=== PATIENT | female | born 1995 | race Caucasian/White ===

== ENCOUNTER 2024-04-28 15:21 | Outpatient (OUT) | payer OTHER, SELFPAY ==
--- NOTE | 2024-04-28 15:36 | XR_ITS ---
The [address] [address] Patient Name: MINISTERIO SANTOS MRN: [id number] date: 1995 Sex: F Assigned Patient Location: [facility] Current Patient Location: Accession/Order Number: [id number] Exam Date: 04/28/2024 15:45 Report Date: 04/29/2024 16:27 At the request of: FREDIS RAMOS Procedure: XR humerus LT PROCEDURE: XR humerus LT COMPARISON: None HISTORY: view for nexplanon in left arm FINDINGS: BONES:No fracture, acute abnormality, or significant arthropathy. SOFT TISSUES:4.5 cm linear hyperdensity identified in the medial posterior arm consistent with the implant. EFFUSION:None visible. OTHER: Negative. XR/XR humerus LT IMPRESSION: Implanted device medial posterior mid arm Electronically authenticated by: YUNIEL RENAE Date: 04/29/2024 16:27
== END 2024-04-28 15:22 | disposition home or self-care (01) ==
LOC: RAD 15:23
PROVIDERS: Visit Provider Obstetrics & Gynecology
DX: Z30.46 Encounter for surveillance of implantable subdermal contraceptive (principal)
CPT/HCPCS: 73060